=== PATIENT | female | born 1960 | race Caucasian/White ===

== ENCOUNTER → 2020-09-11 08:31 | Outpatient (BNVA) | payer MEDICARE, SELFPAY | PROVIDERS: PCP Nurse Practitioner Family; Visit Provider Nurse Practitioner Family | DX: I50.9 Heart failure, unspecified (principal); E55.9 Vitamin D deficiency, unspecified | CPT/HCPCS: 80053; 80061; 82306; 82607; 84443; 85025 ==

== ENCOUNTER → 2020-09-30 11:30 | Outpatient (BNVA) | payer MEDICARE, SELFPAY | PROVIDERS: PCP Nurse Practitioner Family; Referring Provider Nurse Practitioner Family; Visit Provider Internal Medicine Cardiovascular Disease | DX: I50.33 Acute on chronic diastolic (congestive) heart failure (principal); I25.10 Atherosclerotic heart disease of native coronary artery without angina pectoris; I50.20 Unspecified systolic (congestive) heart failure; Z95.810 Presence of automatic (implantable) cardiac defibrillator; E78.2 Mixed hyperlipidemia | CPT/HCPCS: 80048; 83880 ==

== ENCOUNTER 2021-04-23 11:46 | Outpatient (CLI) | payer MEDICARE, SELFPAY ==
--- NOTE | 2021-04-23 11:49 | USCV_ITS ---
Vonda Suh Age: 60 Gender: F : 1960 Exam Date: 04/23/2021 12:31 Ordering Phys: Stacey Shepherd MD ([email or web address]) Technologist: VITALY Exam Location: [facility] [place] Indication: s/p GA 2011. s/p defibrillator/ pacer 2015. c/o dyspnea. BP: / HR: 65 Rhythm: Sinus Technical Quality: Adequate MEASUREMENTS (Male / Female) Normal Values 2D ECHO LV Diastolic Diameter PLAX 4.9 cm 4.2 - 5.9 / 3.9 - 5.3 cm LV Systolic Diameter PLAX 4.0 cm IVS Diastolic Thickness 1.1 cm 0.6 - 1.0 / 0.6 - 0.9 cm IVS Systolic Thickness 1.2 cm LVPW Diastolic Thickness 1.3 cm 0.6 - 1.0 / 0.6 - 0.9 cm LVPW Systolic Thickness 1.7 cm LVOT Diameter 1.9 cm LV Ejection Fraction 2D Teich 35.9 % LV Ejection Fraction MOD 2C 42.1 % LV Ejection Fraction 2C AL 40.3 % LA Diameter 3.9 cm LA Width 4.0 cm LA Height 5.0 cm RA Width 3.2 cm RA Height 3.3 cm Aorta at Sinotubular Diameter 2.9 cm M-MODE Aortic Annulus Diameter 2.8 cm LA Ao Ratio MM 1.6 MV E Point Septal Separation 1.0 cm DOPPLER AV Peak Velocity 129.0 cm/s LVOT Peak Velocity 55.0 cm/s AV Area Cont Eq vti 1.2 cm squared AV Area Cont Eq pk 1.2 cm squared MV Peak Velocity 134.0 cm/s MV Area PHT 3.9 cm squared Mitral E to A Ratio 0.7 MV E' Velocity 52.0 cm/s Mitral E to MV E' Ratio 13.6 Mitral E to LV E' Lateral Ratio 11.2 Mitral E to LV E' Septal Ratio 17.3 TR Peak Velocity 236.8 cm/s TR Peak Gradient 22.4 mmHg TV Peak E Velocity 56.0 cm/s Right Atrial Pressure 10.0 mmHg Pulmonary Artery Systolic Pressu 32.4 mmHg PV Peak Velocity 99.0 cm/s RV Acceleration Time 0.1 s RV Ejection Time 0.3 s RV AcT/ET 0.3 FINDINGS Left Ventricle Normal left ventricular size. LV systolic function is mildly reduced with EF of 40-45%. Moderate hypokinesis of the inferior and inferolateral wall noted. Septal motion is consistent with conduction abnormality. Grade 1 diastolic dysfunction Right Ventricle The right ventricle is normal in size and function. Pacemaker lead noted in the RV Right Atrium The right atrium is normal in size. Pacemaker lead noted in the RA Left Atrium The left atrium is mildly dilated Mitral Valve Structurally normal mitral valve without significant stenosis or prolapse. There is no mitral regurgitation. Aortic Valve Aortic valve is thickened without significant stenosis. There is no aortic regurgitation. Tricuspid Valve Structurally normal tricuspid valve without significant stenosis.Mild to moderate regurgitation. RVSP is 35-40mmHg. This is consistent with mild pulmonary hypertension Pulmonic Valve Structurally normal pulmonic valve without significant stenosis. There is no pulmonic regurgitation. Pericardium Normal pericardium without effusion. Aorta Normal ascending aorta dimension. CONCLUSIONS LV systolic function is mildly reduced with EF of 40-45%. Above mentioned regional wall motion abnormalities Grade 1 diastolic dysfunction Pacemaker lead noted in the RA and RV Mildly dilated left atrium Mild to moderate tricuspid regurgitaiton. Mild pulmonay hypertension No comparison studies are available Apollo Sharma MD (Electronically Signed) Final Date: 04 May 2021 09:46 S
== END 2021-04-23 11:47 | disposition home or self-care (01) ==
LOC: RAD 11:47
PROVIDERS: PCP Nurse Practitioner Family; Visit Provider Internal Medicine Cardiovascular Disease
DX: R06.00 Dyspnea, unspecified (principal); I50.20 Unspecified systolic (congestive) heart failure; I07.1 Rheumatic tricuspid insufficiency; I27.20 Pulmonary hypertension, unspecified
CPT/HCPCS: 93306

== ENCOUNTER → 2021-05-26 10:20 | Outpatient (BNVA) | payer MEDICARE, SELFPAY | PROVIDERS: PCP Nurse Practitioner Family; Visit Provider Nurse Practitioner Family | DX: F32.9 Major depressive disorder, single episode, unspecified (principal); F41.9 Anxiety disorder, unspecified; E55.9 Vitamin D deficiency, unspecified; I50.20 Unspecified systolic (congestive) heart failure; G47.00 Insomnia, unspecified; E78.2 Mixed hyperlipidemia | CPT/HCPCS: 80053; 80061; 82306; 82607; 84443; 85025 ==

== ENCOUNTER → 2021-06-01 11:24 | Outpatient (BNVA) | payer MEDICARE, SELFPAY | PROVIDERS: PCP Nurse Practitioner Family; Visit Provider Internal Medicine Cardiovascular Disease | DX: I50.33 Acute on chronic diastolic (congestive) heart failure (principal); R06.00 Dyspnea, unspecified; I50.20 Unspecified systolic (congestive) heart failure | CPT/HCPCS: 99214 ==

== ENCOUNTER → 2021-07-05 08:56 | Outpatient (BNVA) | payer MEDICARE, SELFPAY | PROVIDERS: PCP Nurse Practitioner Family; Visit Provider Nurse Practitioner Family | DX: I25.5 Ischemic cardiomyopathy (principal); Z79.82 Long term (current) use of aspirin; F17.210 Nicotine dependence, cigarettes, uncomplicated | CPT/HCPCS: 99213; 99214 ==

== ENCOUNTER → 2021-07-09 08:22 | Outpatient (BNVA) | payer MEDICARE, SELFPAY | PROVIDERS: PCP Nurse Practitioner Family; Visit Provider Nurse Practitioner Family | DX: R79.89 Other specified abnormal findings of blood chemistry (principal); I25.5 Ischemic cardiomyopathy | CPT/HCPCS: 80048; 80076; 86705; 86706; 86709; 86803; 87340 ==

== ENCOUNTER 2021-08-06 07:06 | Outpatient (CLI) | payer MEDICARE, SELFPAY ==
--- NOTE | 2021-08-06 07:15 | US_ITS ---
WS: [id number] Complete ABDOMINAL ULTRASOUND HISTORY: R74.8 - Abnormal levels of other serum enzymes COMPARISON: None available. Liver: 12.8 cm in length. Liver is normal size and echogenicity with no mass or intrahepatic dilatati on. Portal Vein: Normal hepatopetal flow with monophasic waveform. Gallbladder: Prior cholecystectomy. Pancreas: Normal size and echogenicity. CBD: 0.2 cm. Right kidney: 10.6 cm x 5.2 cm x 3.9 cm. No mass, cortical thickening or hydronephrosis. Left kidney: 9.9 cm x 5.5 cm x 4.3 cm. No mass, cortical thickening or hydronephrosis. Spleen: Normal size and echogenicity. Abdominal aorta and IVC are within normal limits. No ascites. US/US abdomen complete* [id number] IMPRESSION: 1. Status post cholecystectomy. No bile duct dilatation. 2. Normal abdomen ultrasound.
== END 2021-08-06 07:07 | disposition home or self-care (01) ==
LOC: RAD 07:08
PROVIDERS: PCP Nurse Practitioner Family; Visit Provider Nurse Practitioner Family
DX: R74.8 Abnormal levels of other serum enzymes (principal)
CPT/HCPCS: 76700

== ENCOUNTER → 2021-08-12 13:25 | Outpatient (BNVA) | payer MEDICARE, SELFPAY | PROVIDERS: PCP Nurse Practitioner Family; Visit Provider Nurse Practitioner Family | DX: I50.20 Unspecified systolic (congestive) heart failure (principal); Z95.810 Presence of automatic (implantable) cardiac defibrillator; F17.210 Nicotine dependence, cigarettes, uncomplicated | CPT/HCPCS: 99213 ==

== ENCOUNTER → 2021-08-19 15:40 | Outpatient (BNVA) | payer MEDICARE, SELFPAY | PROVIDERS: PCP Nurse Practitioner Family; Visit Provider Internal Medicine Cardiovascular Disease | DX: Z45.010 Encounter for checking and testing of cardiac pacemaker pulse generator [battery] (principal) | CPT/HCPCS: 93294 ==

== ENCOUNTER → 2021-10-11 15:44 | Outpatient (BNVA) | payer MEDICARE, SELFPAY | PROVIDERS: PCP Nurse Practitioner Family; Visit Provider Internal Medicine Cardiovascular Disease | DX: I25.5 Ischemic cardiomyopathy (principal); I50.20 Unspecified systolic (congestive) heart failure; Z95.810 Presence of automatic (implantable) cardiac defibrillator; I25.10 Atherosclerotic heart disease of native coronary artery without angina pectoris; E78.2 Mixed hyperlipidemia; F17.210 Nicotine dependence, cigarettes, uncomplicated | CPT/HCPCS: 99214 ==

== ENCOUNTER → 2021-10-13 10:50 | Outpatient (BNVA) | payer MEDICARE, SELFPAY | PROVIDERS: PCP Nurse Practitioner Family; Visit Provider Internal Medicine Cardiovascular Disease | DX: R74.8 Abnormal levels of other serum enzymes (principal) | CPT/HCPCS: 80053 ==

== ENCOUNTER → 2021-11-06 16:41 | Outpatient (BNVA) | payer MEDICARE, SELFPAY | PROVIDERS: PCP Nurse Practitioner Family | DX: S69.90XA Unspecified injury of unspecified wrist, hand and finger(s), initial encounter (principal) | CPT/HCPCS: 73130 ==

== ENCOUNTER → 2021-11-12 10:16 | Outpatient (BNVA) | payer MEDICARE, SELFPAY | PROVIDERS: PCP Nurse Practitioner Family; Visit Provider Internal Medicine Cardiovascular Disease | DX: Z45.02 Encounter for adjustment and management of automatic implantable cardiac defibrillator (principal) | CPT/HCPCS: 93282 ==

== ENCOUNTER → 2022-01-26 09:20 | Outpatient (BNVA) | payer MEDICARE, SELFPAY | PROVIDERS: PCP Nurse Practitioner Family; Visit Provider Nurse Practitioner Family | DX: I50.20 Unspecified systolic (congestive) heart failure (principal); E55.9 Vitamin D deficiency, unspecified; J32.9 Chronic sinusitis, unspecified; F32.9 Major depressive disorder, single episode, unspecified; F41.9 Anxiety disorder, unspecified; E78.2 Mixed hyperlipidemia; G47.00 Insomnia, unspecified; R20.2 Paresthesia of skin; K21.9 Gastro-esophageal reflux disease without esophagitis | CPT/HCPCS: 80053; 80061; 82306; 82607; 82746; 83735; 84443; 85025 ==

== ENCOUNTER → 2022-02-18 10:47 | Outpatient (BNVA) | payer MEDICARE, SELFPAY | PROVIDERS: PCP Nurse Practitioner Family; Visit Provider Nurse Practitioner Family | DX: D64.9 Anemia, unspecified (principal) | CPT/HCPCS: 82272 ==

== ENCOUNTER → 2022-04-26 14:58 | Outpatient (BNVA) | payer MEDICARE, SELFPAY | PROVIDERS: PCP Nurse Practitioner Family; Visit Provider Nurse Practitioner Family | DX: I25.10 Atherosclerotic heart disease of native coronary artery without angina pectoris (principal); I25.5 Ischemic cardiomyopathy; I50.20 Unspecified systolic (congestive) heart failure; F17.210 Nicotine dependence, cigarettes, uncomplicated; Z95.810 Presence of automatic (implantable) cardiac defibrillator | CPT/HCPCS: 99214 ==

== ENCOUNTER → 2022-05-24 11:40 | Outpatient (BNVA) | payer MEDICARE, SELFPAY | PROVIDERS: PCP Nurse Practitioner Family; Visit Provider Nurse Practitioner Family | DX: K21.9 Gastro-esophageal reflux disease without esophagitis (principal); E78.2 Mixed hyperlipidemia; D64.89 Other specified anemias; G47.09 Other insomnia; I50.20 Unspecified systolic (congestive) heart failure; F41.9 Anxiety disorder, unspecified; F32.9 Major depressive disorder, single episode, unspecified; Z95.810 Presence of automatic (implantable) cardiac defibrillator; E61.1 Iron deficiency | CPT/HCPCS: 80053; 80061; 82607; 82746; 83550; 85025 ==

== ENCOUNTER → 2022-05-25 16:27 | Outpatient (BNVA) | payer MEDICARE, SELFPAY | PROVIDERS: PCP Nurse Practitioner Family; Visit Provider Internal Medicine Cardiovascular Disease | DX: Z45.02 Encounter for adjustment and management of automatic implantable cardiac defibrillator (principal) | CPT/HCPCS: 93296 ==

== ENCOUNTER → 2022-08-09 09:11 | Outpatient (BNVA) | payer MEDICARE, SELFPAY | PROVIDERS: PCP Nurse Practitioner Family; Visit Provider Nurse Practitioner Family | DX: M25.561 Pain in right knee (principal); M25.461 Effusion, right knee | CPT/HCPCS: 73562 ==

== ENCOUNTER 2022-08-09 14:25 | Outpatient (CLI) | payer MEDICARE, SELFPAY ==
--- NOTE | 2022-08-09 14:30 | CT_ITS ---
WS: [id number] CT OF THE RIGHT KNEE, NONCONTRAST. HISTORY: M25.561 - Pain in right knee Technique: All [facility] scans at [facility] use at least one of these dose optimization techniques: automated exposure control; mA and/or kV adjustment per patient size (includes targeted exams where dose is matched to clinical indication); or iterative reconstruction. DLP: 307.38 mGy.cm COMPARISON: Radiographs 08/09/2022 Normal alignment at the joint. Loss of normal contour of the lateral tibial plateau surface along the joint line. Mild irregularity. No definite fracture. This is likely old. There is additional corresp onding bony sclerosis along the weightbearing surface of the lateral femoral condyle. Small osteochon dral lesion medial femoral condyle weightbearing surface measures 5 mm. Proximal fibula is intact. Sm all joint effusion. Patella normally positioned. CT/CT knee RT wo con* [id number] IMPRESSION: 1. No fractures identified. 2. Small suprapatellar joint effusion. 3. Cortical surface irregularity involving the lateral tibial plateau with add itional sclerosis along the lateral femoral condyle. Favor these changes are re mote and related to osteoarthritis. 4. Small mixed osteochondral lesion, 5 mm medial condyle. 5. Recommendation: Consider follow-up MRI of the RIGHT knee to evaluate for oc cult fracture or marrow contusion injury.
== END 2022-08-09 14:26 | disposition home or self-care (01) ==
LOC: RAD 14:33
PROVIDERS: PCP Nurse Practitioner Family; Visit Provider Nurse Practitioner Family
DX: M25.561 Pain in right knee (principal); M25.461 Effusion, right knee; M89.9 Disorder of bone, unspecified; D64.9 Anemia, unspecified
CPT/HCPCS: 73562; 73700; 80053; 82607; 82728; 82746; 83550; 85025

== ENCOUNTER → 2022-08-19 07:54 | Outpatient (BNVA) | payer MEDICARE, SELFPAY | PROVIDERS: PCP Nurse Practitioner Family; Referring Provider Nurse Practitioner Family; Visit Provider Orthopaedic Surgery | DX: M17.11 Unilateral primary osteoarthritis, right knee (principal) | CPT/HCPCS: 99203 ==

== ENCOUNTER → 2022-10-18 13:59 | Outpatient (BNVA) | payer MEDICARE, SELFPAY | PROVIDERS: PCP Nurse Practitioner Family; Visit Provider Nurse Practitioner Family | DX: I25.10 Atherosclerotic heart disease of native coronary artery without angina pectoris (principal); Z95.810 Presence of automatic (implantable) cardiac defibrillator; I50.20 Unspecified systolic (congestive) heart failure; F17.210 Nicotine dependence, cigarettes, uncomplicated | CPT/HCPCS: 99214 ==

== ENCOUNTER → 2022-10-20 13:24 | Outpatient (BNVA) | payer MEDICARE, SELFPAY | PROVIDERS: PCP Nurse Practitioner Family; Visit Provider Dermatology | DX: L72.0 Epidermal cyst (principal); L81.4 Other melanin hyperpigmentation; D22.5 Melanocytic nevi of trunk; L82.1 Other seborrheic keratosis; Z08 Encounter for follow-up examination after completed treatment for malignant neoplasm; Z85.828 Personal history of other malignant neoplasm of skin | CPT/HCPCS: 99213 ==

== ENCOUNTER → 2022-11-10 10:11 | Outpatient (BNVA) | payer MEDICARE, SELFPAY | PROVIDERS: PCP Nurse Practitioner Family; Visit Provider Dermatology | DX: D48.5 Neoplasm of uncertain behavior of skin (principal) | CPT/HCPCS: 11104 ==

== ENCOUNTER → 2022-11-18 12:01 | Outpatient (BNVA) | payer MEDICARE, SELFPAY | PROVIDERS: PCP Nurse Practitioner Family; Visit Provider Nurse Practitioner Family | DX: E78.5 Hyperlipidemia, unspecified (principal); E55.9 Vitamin D deficiency, unspecified; I50.9 Heart failure, unspecified; Z71.6 Tobacco abuse counseling; R00.0 Tachycardia, unspecified | CPT/HCPCS: 80053; 80061; 82306; 82607; 84443; 85025 ==

== ENCOUNTER → 2023-02-27 11:02 | Outpatient (BNVA) | payer MEDICARE, SELFPAY | PROVIDERS: PCP Nurse Practitioner Family; Visit Provider Internal Medicine Cardiovascular Disease | DX: Z45.02 Encounter for adjustment and management of automatic implantable cardiac defibrillator (principal) | CPT/HCPCS: 93296 ==

== ENCOUNTER → 2023-03-30 09:15 | Outpatient (BNVA) | payer MEDICARE, SELFPAY | PROVIDERS: PCP Nurse Practitioner Family; Visit Provider Student in an Organized Health Care Education/Training Program | DX: M65.342 Trigger finger, left ring finger (principal) | CPT/HCPCS: 73130; 99214 ==

== ENCOUNTER 2023-04-20 10:23 | Day surgery (SDC) | payer MEDICARE, SELFPAY ==
[2023-04-20] VITALS (7 sets, daily range): BP systolic 102–127; BP diastolic 55–75; PULSE 74–85; RESP 14–20; TEMP 36.1–36.3; O2SAT 93–98; BMI 28.7
[2023-04-20] MEDS: sodium chloride 0.9% 1,000 ML 30 ML IV (11:11)
[2023-04-20] MEDS: ketorolac 30 mg/mL INJ IVP (11:11)
[2023-04-20] MEDS: acetaminophen 1,000 MG/100 ML PIGGYBACK 400 MG IV (11:12)
--- NOTE | 2023-04-20 11:24 | ANES.PREANE2 ---
Pre-Anesthetic Assessment Height/Weight: Height 1.52 m Weight 66.678 kg Temp Pulse Resp BP Pulse Ox O2 Del Method 97.0 F L 74 17 127/75 98 Room Air 04/20/23 10:44 04/20/23 10:44 04/20/23 10:44 04/20/23 10:44 04/20/23 10:44 04/20/23 10:45 Operation Date: 04/20/23 13:00 Proposed Procedures p Trigger Finger Release(Right Ring Finger)(Right) - Ari Rai, DO Was Beta Rosita taken within 24 hours: Yes Last intake: Intake Last Liquid Date 04/20/23 Last Liquid Time 08:30 Last Solid Date 04/19/23 Last Solid Time 22:00 Social Tobacco 1-2 ppd x 45 years pack(s) per day Exam alert, oriented x 3, clear to auscultation bilaterally and regular rate & rhythm Airway Submandibular: within normal limits Cervical ROM: within normal limits Mallampati: Class I CV/HEM Hypertension None reported GI Gastroesophageal Reflux Disease Anesthetic Plan ASA status: 3 Anesthesia: MAC Risk of > 500 ml blood loss (7ml/kg in children): No Medications/Allergies Home Medications Medication Instructions Recorded Confirmed Last Taken Type folic acid 800 mcg tablet 0.8 mg PO DAILY 09/10/20 04/19/23 04/12/23 History mecobalamin (vitamin B12) 5,000 5,000 mcg PO DAILY 09/10/20 04/19/23 04/12/23 History mcg disintegrating tablet [id number] 18 mg-FA 400 1 tab PO DAILY 09/10/20 04/19/23 04/12/23 History mcg-calcium 500 mg-vit K 50 mcg tablet (Women's Multivitamin) aspirin 81 mg tablet,delayed 81 mg PO DAILY #90 tabs 11/02/20 04/19/23 Unknown Rx release (Adult Low Dose Aspirin) nitroglycerin 0.4 mg sublingual 0.4 mg sublingual Q5M PRN chest 10/11/21 04/19/23 Unknown Rx tablet (Nitrostat) pain #50 tabs ascorbic acid (vitamin C) 500 mg 500 mg PO BID 04/26/22 04/19/23 04/12/23 History tablet cholecalciferol (vitamin D3) 25 25 mcg PO BID 04/26/22 04/19/2304/12/24 History mcg (1,000 unit) capsule omega-3 fatty acids 1,000 mg 1,000 mg PO BID 04/26/22 04/19/23 04/12/23 History capsule zinc 50 mg tablet 50 mg PO BID 04/26/22 04/19/23 04/12/23 History clonazepam 0.5 mg tablet 0.5 mg PO BID PRN anxiety #30 tabs 05/24/22 04/20/23 04/20/23 Rx lisinopril 2.5 mg tablet 2.5 mg PO DAILY #90 tabs 07/11/22 04/19/23 04/19/23 Rx furosemide 40 mg tablet 40 mg PO QAM #90 tabs 07/15/22 04/19/23 04/19/23 Rx rosuvastatin 10 mg tablet 10 mg PO DAILY #90 tabs 10/18/22 04/19/23 Unknown Rx diclofenac sodium 75 mg 75 mg PO BID PRN pain #180 tabs 11/18/22 04/19/23 04/19/23 Rx tablet,delayed release nicotine 10 mg inhalation 1 inh inhalation BID PRN nicotine 11/18/22 04/19/23 Unknown Rx cartridge (Nicotrol) cravings #168 ea ferrous sulfate 325 mg (65 mg 325 mg PO BID #60 tabs 04/17/23 04/19/23 04/19/23 Rx iron) tablet metoprolol succinate 25 mg 37.5 mg PO BEDTIME 04/19/23 04/19/23 04/18/23 History tablet,extended release 24 hr rabeprazole 20 mg tablet,delayed 20 mg PO DAILY 04/19/23 04/20/23 04/20/23 History release trazodone 100 mg tablet 100 mg PO BEDTIME 04/19/23 04/19/23 04/18/23 History hydrocodone 5 mg-acetaminophen 325 1 tab PO Q6H PRN pain 5 days #20 04/20/23 Unknown Rx mg tablet tabs ondansetron 4 mg disintegrating 4 mg PO Q8H PRN nausea and 04/20/23 Unknown Rx tablet vomiting 3 days #9 tabs Allergies Allergy/AdvReac Type Severity Reaction Status Date / Time clarithromycin [From Biaxin] Allergy night Verified 04/19/23 13:52 terrors codeine Allergy hives, Verified 04/19/23 13:52 nausea meperidine [From Demerol] Allergy ADR-Vomitin Verified 04/19/23 13:52 g oxycodone Allergy ALGY-Hives Verified 04/19/23 13:52 pentazocine [From Talwin] Allergy hives and Verified 04/19/23 13:52 nausea tramadol Allergy ADR-Vomitin Verified 04/19/23 13:52 g sacubitril [From Entresto] AdvReac Severe Syncope/Collapse, Verified 04/19/23 13:52 Mood changes, Fatigue valsartan [From Entresto] AdvReac Severe Syncope/Collapse, Verified 04/19/23 13:52 Mood changes, Fatigue Current Medications Generic Name Dose Route Start Last Admin Trade Name Freq PRN Reason Stop Dose Admin Sodium Chloride 1,000 mls @ 30 mls/hr 04/20/23 11:00 04/20/23 11:11 Sodium Chloride 0.9% IV 04/21/23 10:59 30 mls/hr .Q24H NING Administration PFSH Anesthesia Medical History GERD (gastroesophageal reflux disease) Arthritis Depression 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 Hyperlipidemia Cardiac defibrillator in place CHF (congestive heart failure) Surgical History Hx of tubal ligation History of carpal tunnel release (~2016) H/O: hysterectomy Hx of cholecystectomy Hx of gastric bypass (~2001) History of tonsillectomy and adenoidectomy (~1965) Family History Family/Other CAD (coronary artery disease) Cancer Diabetes Hyperlipidemia Hypertension Psychiatric illness Other Stroke Denies family history of Clotting disorder Chronic kidney disease (CKD) Anesthesia complication Bleeding disorder Social History Smoking and tobacco/nicotine status: current every day tobacco/nicotine user cigarettes Packs smoked per day: 1 Years cigarettes smoked: 50 Second hand smoke exposure: Yes Alcohol intake: current Alcohol intake frequency: holidays/special occasions only Alcohol type: wine Substance/Drug Use: never Caregiver/support person: Yes Lives independently: Yes Household members: spouse Marital status: service: No Current occupational status: disabled Current gender identity: Female Special franchesca needs: No Agree to transfusion: Yes Data Anesthesia Cardiac Studies: Echocardiogram 04/23/21
--- NOTE | 2023-04-20 11:44 | ECG_ITS ---
[facility] Test Date: 2023-04-20 Pat Name: Vonda Suh Department: Room: Gender: Female Maintenance Man: : 1960 Requested By: Tommy Saenz Order Number: [id number] Brianna MD: Apollo Sharma M.D. Measurements Intervals [place] Rate: 65 P: 54 CA: 174 QRS: 29 QRSD: 109 T: -20 QT: 422 QTc: 440 Interpretive Statements SINUS RHYTHM WITH OCCASIONAL VENTRICULAR PREMATURE COMPLEXES LOW QRS VOLTAGE IN PRECORDIAL LEADS [QRS DEFLECTION < 1.0 mV IN CHEST LEADS] PROBABLE INFERIOR MYOCARDIAL INFARCTION , OF INDETERMINATE AGE [35 ms Q WAVE IN II/aVF] No previous ECG available for comparison Electronically Signed On 04-21-2023 9:36:18 STRESS ANALYST by Apollo Sharma M.D. [id number]
--- NOTE | 2023-04-20 12:10 | W.PM.OPSUD ---
Surgery/Procedure H&P Update DATE OF PROCEDURE: April 20, 2023 DATE H&P PERFORMED: 03/30/23 H&P UPDATE INFORMATION: I have reviewed H&P completed within last 30 days, I have examined patient prior to procedure and No changes to prior documentation PREOP DIAGNOSIS: Left ring finger trigger PRIMARY INDICATION FOR PROCEDURE: Left ring finger trigger PLANNED PROCEDURE: Operation Date: 04/20/23 13:00 Proposed Procedures p Trigger Finger Release(Right Ring Finger)(Right) - Ari Atwood DO
[2023-04-20] MEDS: ceFAZolin 2,000 MG in sodium chloride 0.9% (plus) 50 ML 100 MG IV (12:33)
[2023-04-20] MEDS: BUPivacaine 0.5% INJ 10 mL 5 ML INJECTION (12:56)
[2023-04-20] MEDS: ROPivacaine 0.5% SDV 30 mL 25 MG INJECTION (12:56)
--- NOTE | 2023-04-20 13:03 | W.PM.BPON ---
Date of Procedure: 04/20/2023 Surgeon: Ari Atwood DO Button Tufting Machine Operator(s): RADHA Uribe Procedure(s) performed: Left ring finger trigger release Findings of the procedure(s): Procedure went as planned without issues Estimated blood loss: 1 mL Specimen(s) removed: None Post-operative diagnosis: Left ring finger trigger
--- NOTE | 2023-04-20 13:04 | PM.OP ---
Operative Report Date of procedure: April 20, 2023 Surgeon: Ari Atwood DO Family Medicine Physician: RADHA Uribe?FA was necessary for assistance in this case with hand positioning to execute the procedure, retraction and protection of neurovascular structures as well as to assist with wound closure and dressing application. Procedure: Preoperative diagnosis: Left ring finger trigger Post-op diagnosis: Same Procedure done: Left ring finger?trigger?release Surgeon: Ari Atwood DO Estimated blood loss: 1cc Tourniquet time 5mins Complications: None Condition: stable Disposition: same day Brief History: Patient's been seen and worked up in the outpatient setting and findings consistent with preoperative diagnosis of Left ring finger?trigger.? Patient has failed conservative treatment.? Continues to have mechanical locking and catching.? Severe pain as well.? We talked about treatment options nonoperative versus operative intervention.? ?Patient understands the risk benefits complication alternatives of surgical nonsurgical treatment options.? Understanding his risks with surgery patient elects proceed with surgical intervention.? Consent obtained in the office.? Here today to proceed with surgical intervention.? All questions answered. Procedure: Patient was seen and evaluated in the preoperative holding area.? Consent was reviewed and signed with patient.? Seen evaluated by Anesthesia Department.? Once cleared for surgery was brought back to the operative suite.? Placed in supine position on the OR table all bony prominences well-padded patient properly secured to the bed.? Patient's Left arm was then placed to the armboard.? A nonsterile tourniquet applied to the Left upper arm.? Patient's Left upper extremity was then prepped and draped in standard orthopedic fashion.? Final timeout performed.? Patient received appropriate preoperative antibiotics. Esmarch tourniquet was used exsanguinate the Left upper extremity tourniquet insufflated to 250 mmHg. Under sterile aseptic technique local digital block was performed to the Left ring finger.? Once appropriately anesthetized a standard oblique incision was made centering over the A1 neetu following patient's flexor crease.? Sharp scalpel incision was made only through skin and then switched to Littler dissection scissors and spread longitudinally directly over the flexor tendon sheath.? I then mobilized both radially and ulnarly and Kasdan retractors were used and placed by my reference library assistant to protect neurovascular bundle.? Next I visualized the A1 neetu and this was incised with a scalpel.? I then switched to dissection scissors and released the A1 neetu both proximally as well as distally to its entirety.? Significant tendon sheath fluid was noted consistent with inflammation.? Mild fraying of the flexor tendons noted but no tear.? At this point I utilized a rag nail and pulled the tendons FDS and FDP out of the incision and no?triggering was noted.? I then had anesthesia wake up the patient and patient was able to actively flex and extend with no?triggering.? This point thorough irrigation was performed.? Tourniquet deflated hemostasis satisfactory with bipolar.? I then subsequently closed the incision with interrupted nylon suture.? Xeroform 4 x 4's, Kerlix and an Aris wrap was applied for a bulky soft dressing.? Patient was then subsequently awakened from anesthesia and taken to PACU in stable condition tolerated procedure without issues. Disposition: Patient taken back in stable condition recovering well.? Patient will receive appropriate discharge instruction as well as pain medication postoperatively.? Patient to follow-up with me in the office in 2 weeks for repeat evaluation and incision check.? Patient understands that any questions or concerns and contact the office.? All questions answered.
--- NOTE | 2023-04-20 14:20 | ANE.PACU2 ---
Inpatient post-anesthesia follow up: Vital signs: Temperature 97.4 F Pulse Rate 78 Respiratory Rate 18 Blood Pressure 102/60 Pulse Oximetry 95 Oxygen Delivery Me thod Room Air Oxygen Flow Rate 6 Fraction of Inspir ed Oxygen Hydration adequate: Yes Nausea and vomiting: No Pain level: 1 Mental status: Baseline
== END 2023-04-20 14:05 | disposition home or self-care (01) ==
PROVIDERS: PCP Nurse Practitioner Family; Visit Provider Student in an Organized Health Care Education/Training Program
PROC: (CPT 26055; principal; 2023-04-20 12:50)
DX: M65.342 Trigger finger, left ring finger (principal); F17.210 Nicotine dependence, cigarettes, uncomplicated; K21.9 Gastro-esophageal reflux disease without esophagitis; M19.90 Unspecified osteoarthritis, unspecified site; E78.5 Hyperlipidemia, unspecified; I11.0 Hypertensive heart disease with heart failure; I50.9 Heart failure, unspecified
CPT/HCPCS: 26055; 93005; J0131; J0690; J1885; J2704; J2795; J3010; J3490; J7030

== ENCOUNTER → 2023-05-04 14:07 | Outpatient (BNVA) | payer MEDICARE, SELFPAY | PROVIDERS: PCP Nurse Practitioner Family; Visit Provider Physician Assistant | DX: Z98.890 Other specified postprocedural states (principal) | CPT/HCPCS: 99024 ==

== ENCOUNTER → 2023-05-17 13:54 | Outpatient (BNVA) | payer MEDICARE, SELFPAY | PROVIDERS: PCP Nurse Practitioner Family; Visit Provider Internal Medicine | DX: Z45.02 Encounter for adjustment and management of automatic implantable cardiac defibrillator (principal) | CPT/HCPCS: 93296 ==

== ENCOUNTER → 2023-08-16 11:29 | Outpatient (BNVA) | payer MEDICARE, SELFPAY | PROVIDERS: PCP Nurse Practitioner Family; Visit Provider Nurse Practitioner Family | DX: F41.9 Anxiety disorder, unspecified (principal); F32.9 Major depressive disorder, single episode, unspecified; E78.2 Mixed hyperlipidemia; D64.9 Anemia, unspecified; E55.9 Vitamin D deficiency, unspecified | CPT/HCPCS: 80053; 80061; 82306; 82607; 82746; 84443; 85025 ==

== ENCOUNTER → 2024-01-02 11:22 | Outpatient (BNVA) | payer MEDICARE, SELFPAY | PROVIDERS: PCP Nurse Practitioner Family; Visit Provider Nurse Practitioner Family | DX: I50.20 Unspecified systolic (congestive) heart failure (principal) | CPT/HCPCS: 80053; 80061; 82607; 82746; 84443; 85025 ==

== ENCOUNTER → 2024-07-12 08:53 | Outpatient (BNVA) | payer MEDICARE, SELFPAY | PROVIDERS: PCP Nurse Practitioner Family; Visit Provider Nurse Practitioner Family | DX: I50.20 Unspecified systolic (congestive) heart failure (principal) | CPT/HCPCS: 80053; 80061; 84443; 85025 ==

== ENCOUNTER → 2024-10-29 08:59 | Outpatient (BNVA) | payer MEDICARE, SELFPAY | PROVIDERS: PCP Nurse Practitioner Family; Visit Provider Nurse Practitioner Family | DX: E78.2 Mixed hyperlipidemia (principal); D50.9 Iron deficiency anemia, unspecified; I50.20 Unspecified systolic (congestive) heart failure | CPT/HCPCS: 80053; 80061; 82728; 82746; 85025 ==

== ENCOUNTER 2025-02-19 12:59 | Emergency (ER) | payer MEDICARE, SELFPAY ==
[2025-02-19 13:09] VITALS: BP 112/72; PULSE 90; RESP 17; TEMP 36.6; O2SAT 98; BMI 27.7
[2025-02-19 13:54] LABS: Hematocrit 42.3 % (36-47); Hemoglobin 14.00 g/dL (11.27-16.99); Mean Corpuscular HGB Conc 33.1 g/dL (30-55); Mean Corpuscular Hemoglobin 31.8 pg (27-33); Mean Corpuscular Volume 96.1 fl (85-98); Nucleated Red Blood Cells % 0 %; Platelet Count 274 10^3/cmm (157-399); Red Blood Count 4.40 10^6/uL (3.85-5.65); White Blood Count 13.13 10^3/uL (3.29-11.43)
[2025-02-19 13:59] LABS: Alanine Aminotransferase 24 U/L (0-33); Albumin Level 4.5 g/dL (3.5-5.2); Alkaline Phosphatase 119 U/L (35-105); Anion Gap 14.4 (5-19); Aspartate Amino Transferase 22 U/L (0-32); Blood Urea Nitrogen 15 mg/dL (8-23); Calcium 10.0 mg/dL (8.5-10.5); Carbon Dioxide 28 mmol/L (22-29); Chloride 99 mmol/L (98-107); Globulin 2.4 g/dL (1.3-4.6); Glucose 100 mg/dL (65-115); Lipase 29 U/L (13-60); Osmolality Calculated 285 mOsm/kg (285-295); Potassium 4.4 mmol/L (3.5-5.1); Sodium 137 mmol/L (136-145); Total Protein 6.9 g/dL (6.6-8.7)
--- NOTE | 2025-02-19 14:06 | CT_ITS ---
WS: [id number] CT ABDOMEN AND PELVIS NONCONTRAST HISTORY: flank pain TECHNIQUE: Imaging performed through the abdomen and pelvis. Coronal and sagittal reformats are submitted. All CT scans at [facility] use at least one of these dose optimization techniques: automated exposure control; mA and/or kV adjustment per patient size (includes targeted exams where dose is matched to clinical indication); or iterative reconstruction. DLP: 406.41 mGy.cm COMPARISON: None available. Lower thorax: Benign calcified granuloma RIGHT lower lobe. Normal size heart. Small hiatal hernia. Liver: Normal size liver. No mass or bile duct dilatation. Gallbladder: Prior cholecystectomy. Pancreas: Normal size and attenuation. Normal pancreatic duct. No pancreatitis or mass. Spleen: Normal. Adrenal glands: Normal. No mass. Right kidney: Normal size kidney. No obstruction or perinephric stranding. Left kidney: Normal size kidney. No obstruction or perinephric stranding. Aorta: Mild atherosclerosis abdominal aorta with no aneurysm. No free fluid, intraperitoneal air or significant lymphadenopathy. GI tract: Prior gastric bypass. No small bowel or colon obstruction. Normal appendix. Mild diverticular disease. No acute diverticulitis. Abdominal wall: Negative. No hernia. Pelvis: Minimally distended urinary bladder. No free fluid or adenopathy. Absent uterus. Osseous structures: No bone destruction. CT/CT kidney stone [id number] IMPRESSION: 1. Normal appendix. 2. No renal obstruction. No renal calcifications or perinephric stranding. 3. Prior gastric bypass. 4. Mild atherosclerosis aorta.
--- NOTE | 2025-02-19 14:06 | W.ED.FEMALGU ---
HPI - Female Genitourinary General: Chief complaint: Urogenital-Female Stated complaint: blood in urine, nausea, pain, frequent urination Time Seen by Provider: 02/19/25 13:44 Source: patient Mode of arrival: ambulatory Limitations: no limitations History of Present Illness: 64-year-old female states she has been having some suprapubic pain along with frequent urination burning urination. States she passed a kidney stone recently and believes she may have had another kidney stone. Rates the pain an 8 out of 10 denies any worse improved factors has had some nausea denies any fevers. Related Data Home Medications ?Medication ?Instructions ?Recorded ?Confirmed folic acid 800 mcg tablet 0.8 mg PO DAILY 09/10/20 01/22/25 mecobalamin (vitamin B12) 5,000 5,000 mcg PO DAILY 09/10/20 01/22/25 mcg disintegrating tablet [id number] 18 mg-FA 400 1 tab PO DAILY 09/10/20 01/22/25 mcg-calcium 500 mg-vit K 50 mcg tablet (Women's Multivitamin) cholecalciferol (vitamin D3) 25 25 mcg PO BID 04/26/22 01/22/25 mcg (1,000 unit) capsule zinc 50 mg tablet 50 mg PO BID 04/26/22 01/22/25 spironolactone 25 mg tablet 25 mg PO DAILY 08/16/23 01/22/25 ascorbic acid (vitamin C) 500 mg 1 g PO BID 01/02/24 01/22/25 tablet furosemide 20 mg tablet 40 mg PO QAM 01/02/24 01/22/25 metoprolol succinate 25 mg 12.5 mg PO BEDTIME 01/02/24 01/22/25 tablet,extended release 24 hr multivitamin with minerals-folic tab PO 01/02/24 01/22/25 acid 66.7 mcg-biotin 1,000 mcg tablet (Hair,Skin and Nails (folic acid-biotin)) albuterol sulfate 90 mcg/actuation 2 inh inhalation Q4H PRN 07/12/24 01/22/25 breath activated powder inhaler omega-3 720 [id number]-[id number]-fish cap PO BID 10/28/24 01/22/25 oil-vit D3 25 mcg capsule red yeast rice 600 mg tablet 850 mg PO BID 10/28/24 01/22/25 Previous Rx's ?Medication ?Instructions ?Recorded aspirin 81 mg tablet,delayed 81 mg PO DAILY #90 tabs 11/02/20 release (Adult Low Dose Aspirin) lisinopril 2.5 mg tablet 2.5 mg PO DAILY #90 tabs 07/11/22 lifestyle consultant knee brace #1 ea 05/04/23 clonazepam 0.5 mg tablet 0.5 mg PO BID PRN anxiety #30 tabs 08/16/23 nitroglycerin 0.4 mg sublingual 0.4 mg sublingual Q5M PRN chest 01/02/24 tablet (Nitrostat) pain #50 tabs ferrous sulfate 325 mg (65 mg See Rx Instructions .Route 01/16/25 iron) tablet (FeroSul) .COMPLEX #180 tabs rabeprazole 20 mg tablet,delayed See Rx Instructions .Route 02/14/25 release .COMPLEX #90 tabs trazodone 100 mg tablet See Rx Instructions .Route 02/14/25 .COMPLEX #90 tabs cephalexin 500 mg capsule 500 mg PO TID 7 days #21 caps 02/19/25 Allergies Allergy/AdvReac Type Severity Reaction Status Date / Time clarithromycin (From Biaxin) Allergy night Verified 01/22/25 15:48 terrors codeine Allergy hives, Verified 01/22/25 15:48 nausea meperidine (From Demerol) Allergy ADR-Vomitin Verified 01/22/25 15:48 g oxycodone Allergy ALGY-Hives Verified 01/22/25 15:48 pentazocine (From Talwin) Allergy hives and Verified 01/22/25 15:48 nausea tramadol Allergy ADR-Vomitin Verified 01/22/25 15:48 g sacubitril (From Entresto) AdvReac Severe Syncope/Collapse, Verified 01/22/25 15:48 Mood changes, Fatigue valsartan (From Entresto) AdvReac Severe Syncope/Collapse, Verified 01/22/25 15:48 Mood changes, Fatigue montelukast AdvReac ADR-Depress Verified 01/22/25 15:48 [facility] PFSH: Medical History Chronic rhinitis Panic disorder Cigarette smoker Enrolled in chronic care management GERD (gastroesophageal reflux disease) Arthritis Depression 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 Hyperlipidemia Cardiac defibrillator in place CHF (congestive heart failure) Surgical History Hx of tubal ligation History of carpal tunnel release (~2016) H/O: hysterectomy Hx of cholecystectomy Hx of gastric bypass (~2001) History of tonsillectomy and adenoidectomy (~1964) Family History Family/Other CAD (coronary artery disease) Cancer Diabetes Hyperlipidemia Hypertension Psychiatric illness Other Stroke Denies family history of Clotting disorder Chronic kidney disease (CKD) Anesthesia complication Bleeding disorder Social History Smoking and tobacco/nicotine status: never used tobacco/nicotine Second hand smoke exposure: Yes Alcohol intake: current Alcohol intake frequency: holidays/special occasions only Alcohol type: wine Substance/Drug Use: never Caregiver/support person: Yes Lives independently: Yes Household members: spouse Marital status: service: No Current occupational status: disabled Current gender identity: Female Special franchesca needs: No Agree to transfusion: Yes Physical Exam Const: COMMON NORMALS: no acute distress, patient oriented x3 and healthy appearing HENMT: COMMON NORMALS: normocephalic and atraumatic HEAD & SCALP: normocephalic and atraumatic Neck/C-Spine: COMMON NORMALS: full ROM and supple Chest: COMMONS NORMALS: normal inspection of the chest and normal palpation of entire chest wall Resp: COMMON NORMALS: normal respiratory effort, No retractions, No use of accessory muscles and clear to auscultation bilaterally AUSCULTATION: clear to auscultation bilaterally Cardio: COMMON NORMALS: regular rate, regular rhythm and No murmurs present (Cardio) RATE: regular rate RHYTHM: regular rhythm GI: COMMON NORMALS: Normal to inspection, nondistended, normoactive bowel sounds present, Soft to palpation, non-tender and no masses PALPATION: Yes Soft to palpation Extremity: COMMON NORMALS: normal to inspection and full ROM Neuro: COMMON NORMALS: patient oriented x3, moves all extremities and no focal motor deficits Psych: COMMON NORMALS: mental status grossly normal, Normal thought process present and cooperative THOUGHT PROCESS: Normal thought process present Skin: COMMON NORMALS: no rashes or lesions noted and no wounds GENERAL SKIN EXAM: no rashes or lesions noted Course Vital Signs: Vital signs: Vital Signs Temperature 97.8 F 02/19/25 13:09 Pulse Rate 90 02/19/25 13:09 Respiratory Rate 17 02/19/25 13:09 Blood Pressure 112/72 02/19/25 13:09 Pulse Oximetry 98 02/19/25 13:09 Oxygen Delivery Me thod Room Air 02/19/25 13:09 MDM - Female Medical Decision Making Patient presents for dysuria along with lower abdominal pain differential includes kidney stone, cystitis. Patient's been well-appearing here with normal vitals labs show no significant abnormalities urinalysis does show likely cystitis. CT scan here shows no signs of kidney stone. Her pain has improved here with morphine and Zofran. Will give her IV Rocephin and prescribe her Keflex for home she is follow-up with her PCP in 3 to 5 days I did go over all these results with her she is return if worsening she understands agrees to plan. Medical Records I reviewed the patient's medical records. Lab Data I reviewed the patient's lab results. 02/19/25 13:02/19/25 13:25 Radiology Impressions Abdomen/Pelvis CT 02/19/25 14:06 IMPRESSION: 1. Normal appendix. 2. No renal obstruction. No renal calcifications or perinephric stranding. 3. Prior gastric bypass. 4. Mild atherosclerosis aorta. Laboratory Results WBC 13.13 10^3/uL (3.29-11.43) H 02/19/25 13:25 RBC 4.40 10^6/uL (3.85-5.65) 02/19/25 13:25 Hgb 14.00 g/dL (11.27-16.99) 02/19/25 13:25 Hct 42.3 % (36-47) 02/19/25 13:25 MCV 96.1 fl (85-98) 02/19/25 13:25 MCH 31.8 pg (27-33) 02/19/25 13:25 MCHC 33.1 g/dL (30-55) 02/19/25 13: RDW 12.8 % (12.1-15.1) 02/19/25 13:25 Plt Count 274 10^3/cmm (157-399) 02/19/25 13:25 MPV 9.2 fL (7.4-10.4) 02/19/25 13:25 Neut % (Auto) 69.4 % 02/19/25 13:25 Lymph % (Auto) 19.9 % 02/19/25 13:25 [place] % (Auto) 8.1 % 02/19/25 13:25 Eos % (Auto) 1.5 % 02/19/25 13:25 Baso % (Auto) 0.8 % 02/19/25 13:25 Neut # (Auto) 9.11 10^3/uL (1.8-7.7) H 02/19/25 13:25 Lymph # (Auto) 2.6 10^3/uL (0.8-4.8) 02/19/25 13:25 [place] # (Auto) 1.1 10^3/uL (0.2-0.9) H 02/19/25 13:25 Eos # (Auto) 0.2 10^3/uL (0.0-0.8) 02/19/25 13:25 Baso # (Auto) 0.1 10^3/uL (0.0-0.1) 02/19/25 13:25 Nucleated RBC % (auto) 0 % 02/19/25 13:25 Nucleated RBCs # 0.0 /100WBC 02/19/25 13:25 Sodium 137 mmol/L (136-145) 02/19/25 13:25 Potassium 4.4 mmol/L (3.5-5.1) 02/19/25 13:25 Chloride 99 mmol/L (98-107) 02/19/25 13:25 Carbon Dioxide 28 mmol/L (22-29) 02/19/25 13:25 Anion Gap 14.4 (5-19) 02/19/25 13:25 BUN 15 mg/dL (8-23) 02/19/25 13:25 Creatinine 0.6 mg/dL (0.5-0.9) 02/19/25 13:25 GFR Calculation 100.6 mL/min (90-130) 02/19/25 13:25 Glucose 100 mg/dL (65-115) 02/19/25 13:25 Calculated Osmolality 285 mOsm/kg (285-295) 02/19/25 13:25 Calcium 10.0 mg/dL (8.5-10.5) 02/19/25 13:25 Total Bilirubin 0.2 mg/dL (0.15-1.2) 02/19/25 13:25 AST 22 U/L (0-32) 02/19/25 13:25 ALT 24 U/L (0-33) 02/19/25 13:25 Alkaline Phosphatase 119 U/L (35-105) H 02/19/25 13:25 Total Protein 6.9 g/dL (6.6-8.7) 02/19/25 13:25 Albumin 4.5 g/dL (3.5-5.2) 02/19/25 13:25 Globulin 2.4 g/dL (1.3-4.6) 02/19/25 13:25 Lipase 29 U/L (13-60) 02/19/25 13:25 Urine Color Yellow (Yellow) 02/19/25 14:00 Urine Appearance Cloudy (CLEAR) A 02/19/25 14:00 Urine pH 6.5 (5-7) 02/19/25 14:00 Ur Specific [place] 1.013 (1.005-1.030) 02/19/25 14:00 Urine Protein Negative (Negative) 02/19/25 14:00 Urine Glucose (UA) Negative (Normal) 02/19/25 14:00 Urine Ketones Negative (Negative) 02/19/25 14:00 Urine Blood 1+ (Negative) A 02/19/25 14:00 Urine Nitrate Negative (Negative) 02/19/25 14:00 Urine Bilirubin Negative (Negative) 02/19/25 14:00 Urine Urobilinogen 1.0 mg/dL (Negative) 02/19/25 14:00 Ur Leukocyte Esterase 2+ (Negative) A 02/19/25 14:00 Urine RBC 21-50 /hpf (0-2) H 02/19/25 14:00 Urine WBC 51-100 /hpf (0-5) H 02/19/25 14:00 Ur Squamous Epith Cells 0-5 /hpf (0-5) 02/19/25 14:00 Amorphous Sediment Not Reportable 02/19/25 14:00 Urine Bacteria None seen /hpf (NONE) 02/19/25 14:00 Hyaline Casts 0.40 /lpf 02/19/25 14:00 All radiology interpretation(s) finalized by discharge Discharge Plan Discharge Patient Disposition: Home Clinical Impression: Cystitis Condition: Stable Prescriptions: New cephalexin 500 mg capsule 500 mg PO TID 7 Days Qty: 21 0RF No Action Women's Multivitamin 18 mg-400 mcg- 500 mg-50 mcg tablet 1 tab PO DAILY mecobalamin (vitamin B12) 5,000 mcg tablet,disintegrating 5,000 mcg PO DAILY folic acid 800 mcg tablet 0.8 mg PO DAILY cholecalciferol (vitamin D3) 25 mcg (1,000 unit) capsule 25 mcg PO BID zinc 50 mg tablet 50 mg PO BID ascorbic acid (vitamin C) 500 mg tablet 1 g PO BID (DME) lifestyle consultant knee brace See Rx Instructions .Route .MEDSUPPLY Qty: 1 0RF Rx Instructions: As directed furosemide 20 mg tablet 40 mg PO QAM Hair,Skin and Nails(FA-biotin) 66.7-1,000 mcg tablet PO nitroglycerin [Nitrostat] 0.4 mg tablet, sublingual 0.4 mg sublingual Q5M PRN (Reason: chest pain) Qty: 50 3RF Rx Instructions: do not exceed 3 doses per episode albuterol sulfate 90 mcg/actuation aerosol powdr breath activated 2 inh inhalation Q4H PRN red yeast rice 600 mg tablet 850 mg PO BID Rx Instructions: give with meal/snack [id number] oil-vit D3 720 mg- 25 mcg capsule PO BID spironolactone 25 mg tablet 25 mg PO DAILY clonazepam 0.5 mg tablet 0.5 mg PO BID PRN (Reason: anxiety) Qty: 30 1RF aspirin [Adult Low Dose Aspirin] 81 mg tablet,delayed release (DR/EC) 81 mg PO DAILY Qty: 90 3RF Rx Instructions: *Dose reduced - stop Aspirin 325mg lisinopril 2.5 mg tablet 2.5 mg PO DAILY Qty: 90 3RF ferrous sulfate [FeroSul] 325 mg (65 mg iron) tablet See Rx Instructions .ROUTE .COMPLEX Qty: 180 0RF Dose Instruction: Take 1 tablet by mouth twice daily Rx Instructions: Take 1 tablet by mouth twice daily trazodone 100 mg tablet See Rx Instructions .ROUTE .COMPLEX Qty: 90 1RF Dose Instruction: Take 1 tablet by mouth once daily Rx Instructions: Take 1 tablet by mouth once daily rabeprazole 20 mg tablet,delayed release (DR/EC) See Rx Instructions .ROUTE .COMPLEX Qty: 90 1RF Dose Instruction: Take 1 tablet by mouth once daily Rx Instructions: Take 1 tablet by mouth once daily metoprolol succinate 25 mg tablet extended release 24 hr 12.5 mg PO BEDTIME Discharge Orders: Discharge ED (Routine); Ordered 02/19/25 Ordered By: Thong Lomas Referrals: Renuka Edge FNP [Primary Care Provider, Family Practice] - 4-7 days Discharge Diet: Advance as tolerated Discharge Activity: Resume usual activity Patient Instructions: Urinary Tract Infection in Women (ED) Print Language: Macanese Coding Level of Care Code ED G[employer] Operator for [place]
[2025-02-19 14:22] LABS: Glucose Urine UA Negative (Normal); Nitrate Urine Negative (Negative); Specific Gravity, Urine 1.013 (1.005-1.030)
[2025-02-19] MEDS: ondansetron 2 mg/ML SDV 2 mL 4 MG IVP (14:23)
[2025-02-19 14:27] LABS: Add Urine Microscopic? YES
[2025-02-19] MEDS: cefTRIAXone 1,000 mg SDV 1000 MG IVP (15:09)
[2025-02-19 15:19] VITALS: BP 110/78; PULSE 81; O2SAT 98
== END 2025-02-19 15:19 | disposition home or self-care (01) ==
PROVIDERS: Emergency Provider Emergency Medicine; PCP Nurse Practitioner Family
DX: N30.90 Cystitis, unspecified without hematuria (principal); Z79.82 Long term (current) use of aspirin; E78.5 Hyperlipidemia, unspecified; Z85.828 Personal history of other malignant neoplasm of skin; I50.9 Heart failure, unspecified
CPT/HCPCS: 36415; 74176; 80053; 81001; 83690; 85025; 87086; 96374; 96375; 99285; J0696; J1885; J2405; J7030; J9999